=== PATIENT | male | born 1970 | race Two or more races ===

== ENCOUNTER 2017-01-26 10:45 | Emergency (ER) | payer SELFPAY ==
[~2017-01-26] VITALS: Ht 177.8 cm; Wt 83.9 kg
[~2017-01-26 10:45] MED LIST: PROC10TA57 PO; RANI150T6 PO
[2017-01-26 11:09] VITALS: BP 152/85
--- NOTE | 2017-01-26 12:32 | PHYS DOC ---
Past Medical History Past Medical History: No Pertinent History Past Surgical History: No Surgical History Additional Information: 5 cigarettes per day Alcohol Use: None Drug Use: Methamphetamine Social History Narrative: denies Adult General Chief Complaint Chief Complaint: SKIN PROBLEM HPI HPI Patient is a 46 year old male presents to the emergency department stating that he has bugs crawling all over him. He states he has worms crawling in his hair. Patient denies any use of drugs or alcohol. He states that they've been crawling on him for at least 1 month. He denies any fever, chills or any nausea or vomiting. Review of Systems Review of Systems Constitutional: Denies fever or chills [] Eyes: Denies change in visual acuity, redness, or eye pain [] HENT: Denies nasal congestion or sore throat [] Respiratory: Denies cough or shortness of breath [] Cardiovascular: No additional information not addressed in HPI [] GI: Denies abdominal pain, nausea, vomiting, bloody stools or diarrhea [] : Denies dysuria or hematuria [] Musculoskeletal: Denies back pain or joint pain [] Integument: Denies rash or skin lesions. C/o bugs and worms crawling on the skin and in the scalp Neurologic: Denies headache, focal weakness or sensory changes [] Allergies Allergies Allergies Coded Allergies Type Severity Reaction Last Updated Verified No Known Drug Allergies 09/05/16 No Physical Exam Physical Exam Constitutional: Well developed, well nourished, no acute distress, non-toxic appearance. [] HENT: Normocephalic, atraumatic, bilateral external ears normal, oropharynx moist, no oral exudates, nose normal. [] Eyes: PERRLA, EOMI, conjunctiva normal, no discharge. [] Neck: Normal range of motion, no tenderness, supple, no stridor. [] Cardiovascular:Heart rate regular rhythm, no murmur [] Lungs & Thorax: Bilateral breath sounds clear to auscultation [] Skin: Warm, dry, no erythema, no rash. Patient may have tunneling noted along the metacarpal area on the right hand. No abnormalities noted in the hairline with no worms or bugs noted. Back: No tenderness Extremities: No tenderness, no cyanosis, no clubbing, ROM intact, no edema. [] Neurologic: Alert and oriented X 3, normal motor function, normal sensory function, no focal deficits noted. [] Psychologic: Affect normal, judgement normal, mood normal. [] Current Patient Data Vital Signs Vital Signs Date Time Temp Pulse Resp B/P Pulse Ox O2 Delivery O2 Flow Rate FiO2 01/26/17 11:09 99.3 111 18 98 Room Air 99.3 Lab Values Laboratory Tests Test 01/26/17 12:35 Urine Opiates Screen Neg (NEG) Urine Methadone Screen Neg (NEG) Urine Barbiturates Neg (NEG) Urine Phencyclidine Screen Neg (NEG) Urine Amphetamine/Methamphetamine Pos (NEG) Urine Benzodiazepines Screen Neg (NEG) Urine Cocaine Screen Neg (NEG) Urine Cannabinoids Screen Neg (NEG) Urine Ethyl Alcohol Neg (NEG) EKG EKG [] Radiology/Procedures Radiology/Procedures [] Course & Med Decision Making Course & Med Decision Making Pertinent Labs and Imaging studies reviewed. (See chart for details) Patient's urine drug screen was positive for methamphetamines. We'll provide him with permethrin cream to place on his body due to the tunneling noted on the hands. Recommended patient follow-up the primary care physician in the next 7-10 days. Signs symptoms to return back to emergency department and been provided. Also recommended to patient that he stop using methamphetamines. [] Dragon Disclaimer Dragon Disclaimer This electronic medical record was generated, in whole or in part, using a voice recognition dictation system. Departure Departure Impression: Primary Impression: Methamphetamine use Additional Impression: Scabies Disposition: 01 HOME, SELF-CARE Condition: STABLE Referrals: NO PCP (PCP) Patient Instructions: Methamphetamine Abuse, Complications, Scabies Additional Instructions: Avoid using recreational drugs. Medications prescribed. Clean the medication on your body for 8-12 hours and wash it off. Follow-up to primary care physician next 5-7 days. Return back to emergency prior for signs and symptoms of become worse. Scripts Permethrin 60 Gm Cream..g.1 Aries TP ONCE #60 GM Ref 1 Prov:NOA BUSH APRN 01/26/17 Problem Qualifiers NOA BUSH APRN Jan 26, 2017 12:32
[2017-01-26 12:51] LABS: BARBITURATES NEG (NEG); BENZODIAZEPINES NEG (NEG); CANNABINOIDS NEG (NEG); COCAINE NEG (NEG); METHADONE NEG (NEG); OPIATES NEG (NEG); PHENCYCLIDINE NEG (NEG)
[2017-01-26 12:55] LABS: ETHANOL, URINE NEG (NEG)
[2017-01-26] MEDS ORDERED: PERM60CR2 TP (13:07)
== END 2017-01-26 13:16 | disposition home or self-care (01) ==
LOC: ER 10:45
DX: B86 Scabies (principal); F15.90 Other stimulant use, unspecified, uncomplicated; F17.210 Nicotine dependence, cigarettes, uncomplicated
CPT/HCPCS: 80305; 99283; G0481

== ENCOUNTER 2018-04-10 20:29 | Emergency (ER) | payer SELFPAY | END 2018-04-10 21:15 | disposition home or self-care (01) | LOC: ER 20:29 | DX: H60.92 Unspecified otitis externa, left ear (principal) | CPT/HCPCS: 99283 ==

== ENCOUNTER 2018-05-05 15:59 | Inpatient (IN) | payer SELFPAY ==
[2018-05-05] MEDS: IOHEXOL 300 MG/ML 100ML VIAL. IV ×2 (16:30→17:45)
[2018-05-05 16:32] LABS: ADD MAN DIFF? NO
[2018-05-05] MEDS: fentaNYL PF VIAL 100 MCG/2 ML VIAL IV (16:35)
[2018-05-05] MEDS: IV NORMAL SALINE 1000ML BAG 1,000 ML IV ×2 (16:35→18:36)
[2018-05-05] MEDS: ONDANSETRON PF 4 MG/2 ML VIAL. IV (16:35)
[2018-05-05 16:38] LABS: BASO % 0 % (0-3); EOS # 0.3 x10^3/uL (0.0-0.7); EOS % 2 % (0-3); HEMATOCRIT 40.4 % (39.0-53.0); HEMOGLOBIN 13.7 g/dL (13.0-17.5); LYMPH # 1.7 x10^3/uL (1.0-4.8); LYMPH % 14 % (24-48); MEAN CORPUSCULAR HEMOGLOBIN 30 pg (25-35); MEAN CORPUSCULAR HGB CONC 34 g/dL (31-37); MEAN CORPUSCULAR VOLUME 90 fL (79-100); MONO % 8 % (0-9); NEUT # 9.8 x10^3uL (1.8-7.7); NEUT % 76 % (31-73); PLATELET COUNT 292 x10^3/uL (140-400); RED CELL DISTRIBUTION WIDTH 13.7 % (11.5-14.5); WHITE BLOOD COUNT 12.9 x10^3/uL (4.0-11.0)
[2018-05-05 16:44] LABS: ANION GAP 9 (6-14); BLOOD UREA NITROGEN 10 mg/dL (8-26); BUN/CREATININE RATIO 9 (6-20); CARBON DIOXIDE 28 mmol/L (21-32); CHLORIDE 101 mmol/L (98-107); CREATININE 1.1 mg/dL (0.7-1.3); GFR 72.4; GLUCOSE 98 mg/dL (70-99); POTASSIUM 3.9 mmol/L (3.5-5.1); SODIUM 138 mmol/L (136-145)
[2018-05-05 16:55] LABS: ALBUMIN 3.5 g/dL (3.4-5.0); ALBUMIN/GLOBULIN RATIO 0.8 (1.0-1.7); ALK PHOS 117 U/L (46-116); ALT (SGPT) 15 U/L (16-63); AST (SGOT) 14 U/L (15-37); TOTAL BILIRUBIN 0.5 mg/dL (0.2-1.0); TOTAL PROTEIN 7.9 g/dL (6.4-8.2)
[2018-05-05] MEDS ORDERED: DEXAMETHASONE SOD PHOS 20 MG/5 ML VIAL. (17:29)
[2018-05-05] MEDS: DEXAMETHASONE SOD PHOS 20 MG/5 ML VIAL. IV (17:30)
[2018-05-05] MEDS ORDERED: CONTRAST GIVEN. MC (18:00)
[2018-05-05] MEDS ORDERED: CLINDAMYCIN 900MG PREMIX 50 ML IV (18:30)
[2018-05-05] MEDS ORDERED: FAMOTIDINE 20 MG/2 ML VIAL (18:42)
[2018-05-05] MEDS ORDERED: MORPHINE SULFATE 2 MG/ML DISP.SYRIN. IV (18:45)
[2018-05-05] MEDS ORDERED: ONDANSETRON PF 4 MG/2 ML VIAL. IV (18:45)
[2018-05-05] MEDS ORDERED: fentaNYL PF VIAL 100 MCG/2 ML VIAL IV (18:45)
[2018-05-05] MEDS: CLINDAMYCIN 900MG PREMIX 50 ML IV (18:52)
[2018-05-05] MEDS: FAMOTIDINE 20 MG/2 ML VIAL IVP (19:15)
[2018-05-06] MEDS: DEXAMETHASONE SOD PHOS 4 MG/ML VIAL IV ×4 (04:09→17:54)
[2018-05-06] MEDS: IV NORMAL SALINE 1000ML BAG 1,000 ML IV ×2 (04:20→10:36)
[2018-05-06] MEDS: CLINDAMYCIN 900MG PREMIX 50 ML IV ×2 (04:26→11:00)
[2018-05-06 04:55] LABS: BASO % 0 % (0-3); EOS % 0 % (0-3); HEMATOCRIT 40.1 % (39.0-53.0); HEMOGLOBIN 13.6 g/dL (13.0-17.5); LYMPH # 0.7 x10^3/uL (1.0-4.8); LYMPH % 7 % (24-48); MEAN CORPUSCULAR HEMOGLOBIN 31 pg (25-35); MEAN CORPUSCULAR HGB CONC 34 g/dL (31-37); MEAN CORPUSCULAR VOLUME 90 fL (79-100); MONO # 0.2 x10^3/uL (0.0-1.1); MONO % 2 % (0-9); NEUT # 8.3 x10^3uL (1.8-7.7); NEUT % 90 % (31-73); PLATELET COUNT 284 x10^3/uL (140-400); RED BLOOD COUNT 4.44 x10^6/uL (4.30-5.70); RED CELL DISTRIBUTION WIDTH 13.5 % (11.5-14.5); WHITE BLOOD COUNT 9.2 x10^3/uL (4.0-11.0)
[2018-05-06 05:00] LABS: ADD MAN DIFF? YES
[2018-05-06 05:11] LABS: ANION GAP 7 (6-14); BLOOD UREA NITROGEN 10 mg/dL (8-26); CARBON DIOXIDE 28 mmol/L (21-32); CHLORIDE 102 mmol/L (98-107); GFR 80.8; GLUCOSE 185 mg/dL (70-99); POTASSIUM 4.4 mmol/L (3.5-5.1); SODIUM 137 mmol/L (136-145)
[2018-05-06 06:17] LABS: % BANDS 1 % (0-9); % MONOS 2 % (0-10); % SEGS 97 % (35-66)
[2018-05-06 06:18] LABS: PLT ESTIMATE ADEQUATE (ADEQUATE)
[2018-05-06] MEDS ORDERED: CALCIUM CARBONATE 500 MG TAB.CHEW PO (10:00)
[2018-05-06] MEDS: LACTOBACILLUS RHAMNOSUS GG 1 CAPSULE. PO (13:19)
== END 2018-05-06 18:30 | disposition home or self-care (01) | DRG 153 ==
LOC: ER 15:59 → 4 NORTH 18:35
DX: J36 Peritonsillar abscess (principal); F15.90 Other stimulant use, unspecified, uncomplicated; Z82.49 Family history of ischemic heart disease and other diseases of the circulatory system
CPT/HCPCS: 36415; 70491; 80048; 80053; 85007; 85025; 96361; 96365; 96375; 99285; 99285-25; J1100; J2405; J3010; J3490; J7030; S0028

== ENCOUNTER 2018-07-13 23:29 | Emergency (ER) | payer SELFPAY ==
[~2018-07-13] VITALS: Ht 170.2 cm; Wt 83.9 kg
[~2018-07-13 23:29] MED LIST changes: +OFLO5DRO7 EACH EAR; +PERM60CR12 TP; +RANI150T21 PO; -RANI150T6 PO
[2018-07-14 01:35] VITALS: BP 125/67
[2018-07-14] MEDS ORDERED: DEXAMETHASONE 4 MG TABLET PO ONE (01:45)
--- NOTE | 2018-07-14 01:57 | PHYS DOC ---
Past Medical History Past Medical History: No Pertinent History Past Surgical History: No Surgical History Alcohol Use: None Drug Use: None, Methamphetamine Adult General Chief Complaint Chief Complaint: Congestion HPI HPI Patient is a 47 year old male who presents with cough and congestion for the past 2 days. He states he has been coughing up thick red-colored mucus. He also endorses subjective fevers, headache, sinus pain, myalgias, and heartburn. He denies shortness of breath, nausea, vomiting, diarrhea, constipation, dizziness, blurry vision, sneezing, and sore throat. He has not tried taking any medications. Nothing makes his symptoms better or worse. Review of Systems Review of Systems Constitutional: Notes fever and chills Eyes: Denies change in visual acuity, redness, or eye pain HENT: Notes nasal congestion; Denies sore throat Respiratory: Notes cough; Denies shortness of breath Cardiovascular: No additional information not addressed in HPI GI: Denies abdominal pain, nausea, vomiting, diarrhea or constipation : Denies dysuria or hematuria Musculoskeletal: Notes body aches; Denies back pain Integument: Denies rash or skin lesions Neurologic: Notes headache; Denies focal weakness or sensory changes Complete systems were reviewed and found to be within normal limits, except as documented in this note. Family History Family History Denies Current Medications Current Medications Current Medications Medications (Trade) Dose Ordered Sig/Yuan Start Time Stop Time Status Last Admin Dose Admin Albuterol/ Ipratropium (Duoneb) 3 ml 1X ONCE 07/14/18 02:00 07/14/18 02:03 DC 07/14/18 02:01 3 ML Dexamethasone (Decadron) 10 mg 1X ONCE 07/14/18 01:45 07/14/18 01:46 DC 07/14/18 01:45 10 MG Levofloxacin (Levaquin) 750 mg 1X ONCE 07/14/18 02:15 07/14/18 02:16 DC Allergies Allergies Allergies Coded Allergies Type Severity Reaction Last Updated Verified No Known Drug Allergies 09/05/16 No NKDA Physical Exam Physical Exam Constitutional: Well developed, well nourished. HENT: Normocephalic, atraumatic, bilateral external ears normal, oropharynx slightly dry, no oral exudates, nose congested Eyes: Conjunctiva normal, no discharge Neck: Normal range of motion, no tenderness, supple, no meningismus Cardiovascular: Heart rate regular rhythm, no murmur Lungs & Thorax: Slight crackles in bilateral lungs Abdomen: Soft, nontender Skin: Warm, dry, no erythema, no rash Back: No tenderness, no CVA tenderness Extremities: No tenderness, ROM intact, no edema Neurologic: Alert and oriented X 3, normal motor function, normal sensory function, no focal deficits noted. Psychologic: Affect normal, judgement normal, mood normal Current Patient Data Vital Signs Vital Signs Date Time Temp Pulse Resp B/P (MAP) Pulse Ox O2 Delivery O2 Flow Rate FiO2 07/14/18 02:02 100 Room Air 07/14/18 01:35 98.2 70 18 125/67 (86) 98.2 EKG EKG [] Radiology/Procedures Radiology/Procedures 2 view CXR: (preliminary interpretation by ED physician): RLL infiltrate noted concerning for pneumonia Course & Med Decision Making Course & Med Decision Making Pertinent Labs and Imaging studies reviewed. (See chart for details) Dawood Hu is a 47 year old male who presents with cough and congestion for the past 2 days. Symptoms were suggestive of bronchitis vs. pneumonia. Pertinent labs and imaging studies were obtained and reviewed (see chart for details). A 2-view chest x-ray indicated a RLL infiltrate concerning for pneumonia. Patient's symptoms are likely due to a bacterial pneumonia. Patient will be prescribed Levofloxacin, Duoneb, and Decadron. Patient stable for discharge with outpatient follow-up with PCP. Discussed findings and plan with patient who acknowledges understanding and agreement. Discharge paperwork provided to patient in Malay. Dragon Disclaimer Dragon Disclaimer This electronic medical record was generated, in whole or in part, using a voice recognition dictation system. Departure Departure Impression: Primary Impression: Pneumonia Disposition: HOME, SELF-CARE Condition: STABLE Referrals: NO PCP (PCP) Patient Instructions: Pneumonia, Adult, [id number] Scripts Guaifenesin/Codeine Phosphate (GUAIFENESIN-CODEINE SYRUP) 10 Ml Liquid 10 ML PO Q6HRS PRN for COUGH, #150 LIQUID Prov: MARCI BAKER DO 07/14/18 Levofloxacin (LEVAQUIN) 500 Mg Tablet 1 TAB PO DAILY for urinary tract infection, #7 TAB Prov: MARCI BAKER DO 07/14/18 Prednisone (PREDNISONE) 20 Mg Tablet 2 TAB PO DAILY, #8 TAB Start on Wednesday07/15/18 Prov: MARCI BAKER DO 07/14/18 Albuterol Sulfate (PROAIR HFA INHALER) 8.5 Gm Hfa.aer.ad 1 PUFF INH PRN Q6HRS PRN for SHORTNESS OF BREATH, #1 INHALER 0 Refills Prov: MARCI BAKER DO 07/14/18 Problem Qualifiers Primary Impression: Pneumonia Pneumonia type: due to unspecified organism Laterality: right Lung location : lower lobe of lung Qualified Codes: J18.1 - Lobar pneumonia, unspecified organism MARCI BAKER DO Jul 14, 2018 01:57
[2018-07-14] MEDS ORDERED: IPRATRPIUM/ALBUTEROL 0.5/2.5MG 3 ML NEBU. NEB ONE (02:00)
[2018-07-14] MEDS ORDERED: PRED20TA PO (02:22)
[2018-07-14] MEDS ORDERED: GUAI10LI PO (02:22)
[2018-07-14] MEDS ORDERED: PROAIR HFA8.5 GM INH (02:22)
[2018-07-14] MEDS ORDERED: LEVO500T59 PO (02:22)
--- NOTE | 2018-07-14 07:55 | RAD ---
Chest, 2 views, 07/14/2018: HISTORY: Cough Comparison is made to a study from 07/06/2016. The heart size is normal. The lateral view demonstrates an elongated opacity projected over the anterior aspect of the heart which appears to lie in the right middle lobe. There is also minimal linear atelectasis in the left base. The upper lung jc are clear. There is no evidence of pleural fluid. IMPRESSION: Right middle lobe atelectasis and/or pneumonitis. Note: The findings were called to personnel in the [facility] ER at 7:51 AM on 07/14/2018. Electronically signed by: Yunior Robertson MD (07/14/2018 7:52 AM) [facility]
== END 2018-07-14 03:00 | disposition home or self-care (01) ==
LOC: ER 23:29
DX: J18.1 Lobar pneumonia, unspecified organism (principal); R51 Headache
CPT/HCPCS: 71046; 94640; 99284; J7620; J8540

== ENCOUNTER 2020-05-22 09:30 | Emergency (ER) | payer SELFPAY ==
[~2020-05-22] VITALS: Ht 175.3 cm; Wt 84.0 kg
[~2020-05-22 09:30] MED LIST changes: +ALBU2.5V8 INH; +GUAI10LI PO; +LEVO500T59 PO; +PRED20TA PO; +RANI-376 PO; -RANI150T21 PO
[2020-05-22 09:45] VITALS: BP 119/63
--- NOTE | 2020-05-22 10:04 | PHYS DOC ---
Past Medical History Past Medical History: No Pertinent History Past Surgical History: No Surgical History Smoking Status: Never Smoker Alcohol Use: None Drug Use: None, Methamphetamine General Adult EDM: Chief Complaint: BACK PAIN OR INJURY HPI: HPI: Patient is a 49 year old male who presents with a 4-day history of left lumbar pain that was atraumatic. Pain is sharp and stabbing and nonradiating. Pain is worse with range of motion. Patient denies any weakness or numbness. Patient denies any bowel or bladder incontinence. Patient states the pain is severe and worse with range of motion. Review of Systems: Review of Systems: Constitutional: Denies fever or chills Eyes: Denies change in visual acuity HENT: Denies sore throat Respiratory: Denies cough or shortness of breath Cardiovascular: Denies chest pain or edema GI: Denies abdominal pain, nausea, vomiting, or diarrhea : Denies dysuria Musculoskeletal: Complains of lumbar back pain Integument: Denies rash Neurologic: Denies headache or focal weakness, denies numbness or bowel or bladder incontinence Psychiatric: Denies depression or anxiety Heart Score: Risk Factors: Risk Factors: DM, Current or recent (<one month) smoker, HTN, HLP, family history of CAD, obesity. Risk Scores: Score 0 - 3: 2.5% MACE over next 6 weeks - Discharge Home Score 4 - 6: 20.3% MACE over next 6 weeks - Admit for Clinical Observation Score 7 - 10: 72.7% MACE over next 6 weeks - Early Invasive Strategies Allergies: Allergies: Allergies Coded Allergies Type Severity Reaction Last Updated Verified No Known Drug Allergies 09/05/16 No Physical Exam: PE: Constitutional: Well developed, well nourished, no acute distress, non-toxic appearance. HENT: No trismus, external ears normal Eyes: Conjunctiva clear, EOMI Neck: Normal range of motion, no tenderness, supple, no stridor. Cardiovascular: Regular rate/rhythm, peripheral pulse intact, [employer] intact Lungs & Thorax: No respiratory distress Abdomen: No distension, nontender, no pulsatile masses Skin: Diffuse: Intact, no rash Back: Limited range of motion due to pain, tender to palpate in the lumbar left area. Extremities: Normal inspection, no edema Neurologic: Alert and oriented X 3, normal motor function, , no focal deficits noted. No saddle anesthesia, dorsiflexion of the great toes intact bilateral lower extremities Psychologic: Affect normal, judgement normal, mood normal. EKG: EKG: [] Radiology/Procedures: Radiology/Procedures: [][facility] [address] [place] [address] IMAGING REPORT Signed PATIENT: RACHELLE BASHIR JACCOUNT: [id number] : 1970 LOCATION: ER AGE: 49 SEX: M EXAM STATUS: REG ER ORD. PHYSICIAN: KARLEE ZALDIVAR MD REASON: lbp PROCEDURE: LUMBAR SPINE 2-3V PROCEDURE: LUMBAR SPINE 2-3V STUDY DATE: 05/22/2020 CLINICAL INDICATION / HISTORY: Reason: lbp / Spl. Instructions: / History: . TECHNIQUE: AP, lateral and coned-down lateral views of the lumbar spine were obtained COMPARISON: None currently available FINDINGS: Five lumbar segments are identified. Lumbar vertebral bodies are normal in height and alignment. Disc height is maintained. Pedicles are intact. Visualized sacroiliac joints and hips are unremarkable. IMPRESSION: Unremarkable lumbar spine series. Electronically signed by: Inna Paredes MD (05/22/2020 10:32 AM) [id number] DICTATED and SIGNED BY: INNA PAREDES MD DATE: 05/22/20 1032 Course & Med Decision Making: Course & Med Decision Making Pertinent Labs and Imaging studies reviewed. (See chart for details) [] Patient was found to be eloped on reassessment Azael Disclaimer: Azael Disclaimer: This electronic medical record was generated, in whole or in part, using a voice recognition dictation system. Departure Departure Impression: Primary Impression: Back pain Disposition: 07 AGAINST MEDICAL ADVICE (ELOPED) Condition: STABLE Referrals: NO PCP (PCP) Justicifation of Admission Dx: Justifications for Admission: Justification of Admission Dx: N/A KARLEE ZALDIVAR MD May 22, 2020 10:04
[2020-05-22] MEDS ORDERED: KETOROLAC 60 MG/2 ML VIAL. IM ONE (10:15)
[2020-05-22] MEDS ORDERED: diazePAM 5 MG TABLET PO ONE (10:15)
--- NOTE | 2020-05-22 10:35 | RAD ---
PROCEDURE: LUMBAR SPINE 2-3V STUDY DATE: 05/22/2020 CLINICAL INDICATION / HISTORY: Reason: lbp / Spl. Instructions: / History: . TECHNIQUE: AP, lateral and coned-down lateral views of the lumbar spine were obtained COMPARISON: None currently available FINDINGS: Five lumbar segments are identified. Lumbar vertebral bodies are normal in height and alignment. Disc height is maintained. Pedicles are intact. Visualized sacroiliac joints and hips are unremarkable. IMPRESSION: Unremarkable lumbar spine series. Electronically signed by: Tori Paredes MD (05/22/2020 10:32 AM) [id number]
== END 2020-05-22 11:25 | disposition left against medical advice (07) ==
LOC: ER 09:30
DX: M54.5 Low back pain (principal); F19.90 Other psychoactive substance use, unspecified, uncomplicated
CPT/HCPCS: 72100; 96372; 99283; J1885